=== PATIENT | female | born 1995 | race Caucasian/White ===

== ENCOUNTER 2021-01-22 17:05 | Emergency (ER) | payer BC ==
[~2021-01-22] VITALS: Ht 157.5 cm; Wt 63.6 kg
[2021-01-22 18:01] VITALS: TEMP 97.1
[2021-01-22 19:43] VITALS: BP 111/72; PULSE 70
== END 2021-01-22 19:43 | disposition home or self-care (01) ==
LOC: COL.ER 17:05
DX: S61.211A Laceration without foreign body of left index finger without damage to nail, initial encounter (principal); W26.0XXA Contact with knife, initial encounter; Y92.009 Unspecified place in unspecified non-institutional (private) residence as the place of occurrence of the external cause

== ENCOUNTER → 2021-02-06 | Outpatient (CLI) | payer BC ==
[2021-02-06 10:55] VITALS: BP 119/70; PULSE 83; TEMP 99
== END ==
LOC: COL.ER 10:48
DX: Z48.02 Encounter for removal of sutures (principal)